=== PATIENT | male | born 1990 | race Caucasian/White ===

== ENCOUNTER 2019-06-04 21:40 | Emergency (ER) | payer SELFPAY ==
[~2019-06-04] VITALS: Ht 175.3 cm; Wt 90.0 kg
[~2019-06-04 21:40] MED LIST: BACITUD TOP; CEPH-443 PO; IBUP800T48 PO
[2019-06-04 21:41] VITALS: Ht 175.3 cm; Wt 90.0 kg
[2019-06-05] MEDS ORDERED: HYDROCODONE/APAP (10/325) TAB PO ONE (01:00)
[2019-06-05] MEDS ORDERED: DIPHTH/TET/ACEL PERTUSS (ADULT) 0.5 ML VIAL IM* ONE (01:00)
[2019-06-05] MEDS ORDERED: BACITRACIN 0.5%/ZINC 28.35 GM OINT TOP ONE ×2 (01:00→01:30)
[2019-06-05 03:15] VITALS: BP 136/82; PULSE 58; RESP 17
== END 2019-06-05 03:15 | disposition home or self-care (01) ==
LOC: FTE 21:40
DX: S01.81XA Laceration without foreign body of other part of head, initial encounter (principal); S06.0X0A Concussion without loss of consciousness, initial encounter; Y08.89XA Assault by other specified means, initial encounter; Z23 Encounter for immunization
CPT/HCPCS: 70450; 70486; 90471; 90715